=== PATIENT | female | born 1945 ===

== ENCOUNTER 2023-07-19 08:15 | Day surgery (SDC) | payer MEDICARE ==
[2023-07-19] MEDS ORDERED: Proparacaine 0.5% Ophth Soln 15 ML Bottle EYELF ONE ×2 (08:30→09:57)
[2023-07-19] MEDS ORDERED: Timolol Maleate 0.5% Ophth Soln 5 ML Bottle EYELF ONE (08:30)
[2023-07-19] MEDS ORDERED: Cataract Ophth Solution EYELF ONE (08:30)
[2023-07-19] MEDS ORDERED: Moxifloxacin 0.5% Ophth Soln 3 ML Bottle EYELF ONE (08:30)
[2023-07-19] MEDS ORDERED: Acetaminophen 325 MG Tab PO PRN (08:30)
[2023-07-19] MEDS ORDERED: Tropicamide 1% Ophth Soln 15 ML Bottle EYELF ONE (08:30)
[2023-07-19] MEDS ORDERED: Phenylephrine 10% Ophth Soln 5 ML Bot EYELF ONE (08:30)
[2023-07-19] MEDS ORDERED: Ondansetron 4 MG/2 ML SDV IVPUSH PRN (08:30)
[2023-07-19] MEDS ORDERED: Povidone-Iodine 5% Sterile Ophth Soln 30 ML Bottle EYELF ONE ×2 (08:30→09:57)
[2023-07-19] MEDS ORDERED: Acetaminophen/Codeine 300-30 MG Tab PO PRN (08:30)
[2023-07-19] MEDS ORDERED: Sodium Chloride 0.9% 10 ML Syringe FLUSH PRN (08:30)
[2023-07-19] MEDS ORDERED: Apraclonidine 0.5% Ophth Soln 5 ML Bot EYELF ONE (09:58)
[2023-07-19] MEDS ORDERED: Dexamethasone/Neomycin/Polymyxin B Ophth Oint 3.5 GM Tube EYELF ONE (09:58)
[2023-07-19] MEDS ORDERED: Diclofenac Sodium 0.1% Ophth Soln 5 ML Bottle EYELF ONE (09:58)
[2023-07-19] MEDS ORDERED: Vancomycin 500 MG SDV EYELF ONE (09:59)
[2023-07-19] MEDS ORDERED: Lidocaine 1% 30 ML SDV INJECT ONE (09:59)
== END 2023-07-19 11:00 | disposition home or self-care (01) ==
LOC: DL.SDS 08:15
PROVIDERS: ATTEND Ophthalmology
DX: H25.812 Combined forms of age-related cataract, left eye (principal); I10 Essential (primary) hypertension; K21.9 Gastro-esophageal reflux disease without esophagitis; Z87.891 Personal history of nicotine dependence; Z79.890 Hormone replacement therapy; Z79.899 Other long term (current) drug therapy
CPT/HCPCS: A9270-GY; J3370; J3490; V2632

== ENCOUNTER 2023-08-09 10:01 | Day surgery (SDC) | payer MEDICARE ==
[~2023-08-09 10:01] MED LIST: Acetaminophen 325 MG Tab PO PRN; Acetaminophen/Codeine 300-30 MG Tab PO PRN; Ondansetron 4 MG/2 ML SDV IVPUSH PRN
[2023-08-09] MEDS: Proparacaine 0.5% Ophth Soln 15 ML Bottle EYERT ONE ×2 (10:19→11:11)
[2023-08-09] MEDS: Moxifloxacin 0.5% Ophth Soln 3 ML Bottle EYERT ONE (10:20)
[2023-08-09] MEDS: Tropicamide 1% Ophth Soln 15 ML Bottle EYERT ONE (10:21)
[2023-08-09] MEDS: Povidone-Iodine 5% Sterile Ophth Soln 30 ML Bottle EYERT ONE ×2 (10:21→11:11)
[2023-08-09] MEDS: Timolol Maleate 0.5% Ophth Soln 5 ML Bottle EYERT ONE (10:22)
[2023-08-09] MEDS: Phenylephrine 10% Ophth Soln 5 ML Bot EYERT ONE (10:22)
[2023-08-09] MEDS: Cataract Ophth Solution EYERT ONE (10:23)
[2023-08-09] MEDS: Sodium Chloride 0.9% 10 ML Syringe FLUSH PRN (10:28)
[2023-08-09] MEDS: Apraclonidine 0.5% Ophth Soln 5 ML Bot EYERT ONE (11:12)
[2023-08-09] MEDS: Diclofenac Sodium 0.1% Ophth Soln 5 ML Bottle EYERT ONE (11:13)
[2023-08-09] MEDS: Dexamethasone/Tobramycin 0.1-0.3% Ophth Oint 3.5 GM Tube EYERT ONE (11:13)
[2023-08-09] MEDS: Lidocaine 1% 30 ML SDV INJECT ONE (11:14)
[2023-08-09] MEDS: Vancomycin 500 MG SDV EYERT ONE (11:14)
== END 2023-08-09 11:55 | disposition home or self-care (01) ==
LOC: DL.SDS 10:01
PROVIDERS: ATTEND Ophthalmology
DX: H25.811 Combined forms of age-related cataract, right eye (principal); Z79.899 Other long term (current) drug therapy; Z98.890 Other specified postprocedural states; K21.9 Gastro-esophageal reflux disease without esophagitis; Z87.891 Personal history of nicotine dependence
CPT/HCPCS: 66984; A9270; J3370; V2632; J3490